=== PATIENT | female | born 1980 | race African-American/Black ===

== ENCOUNTER 2021-01-19 06:37 | Day surgery (SDC) | payer SELFPAY ==
[2021-01-18 11:55] LABS: Absolute Lymphocytes (CBC) 1.8 K/uL (0.7-4.9); Basophils % 0.5 % (0-1.3); Lymphocytes % 26.2 % (15.3-44.8); MPV 8.2 fL (7.6-11.3); RBC Red Blood Cell Count 3.97 M/uL (3.86-4.86)
--- NOTE | 2021-01-18 12:03 | RAD REPORT ---
EXAM DESCRIPTION: Apolinar Perry (2 Views)01/18/2021 11:53 am CLINICAL HISTORY: preop COMPARISON: None FINDINGS: The lungs appear clear of acute infiltrate. The heart is normal size IMPRESSION: No acute abnormalities displayed
[2021-01-18 12:10] LABS: BUN Blood Urea Nitrogen 19 mg/dL (7-18); Bicarbonate 28 mmol/L (21-32); Glucose Level 95 mg/dL (74-106); Sodium Level 141 mmol/L (136-145)
[2021-01-19] MEDS ORDERED: CEFAZOLIN/SWI 1gm 1 GM/10 ML SYR ONE (07:17)
[2021-01-19] MEDS ORDERED: Ringers Lactate 1,000 ML IV ONE ×2 (07:17→12:40)
--- NOTE | 2021-01-19 09:23 | RAD REPORT ---
EXAM DESCRIPTION: NM - Lymphoscintigraphy - 01/19/2021 9:17 am CLINICAL HISTORY: BREAST CA Preoperative lymphoscintigraphy right breast. COMPARISON: Chest Pa And Lat (2 Views) dated 01/18/2021 FINDINGS: Four separate injections of 0.1 millicuries technetium sulfur colloid each was placed abou t the right nipple. Immediate scintigraph shows good localization of radiopharmaceutical.
[2021-01-19] MEDS ORDERED: METHYLENE BLUE 0.5% 10 ML AMP ONE (10:01)
[2021-01-19] MEDS ORDERED: MIDAZOLAM HCL 2 MG/2 ML INJ ONE (10:07)
[2021-01-19] MEDS ORDERED: propofoL 200 MG/20 ML VIAL IV ONE (10:09)
[2021-01-19] MEDS ORDERED: dexAMETHasone 10 MG/ML VIAL ONE (10:10)
[2021-01-19] MEDS ORDERED: FENTANYL CITR 250 MCG/5 ML ONE (10:10)
[2021-01-19] MEDS ORDERED: LIDOCAINE 2% MPF 5 ML VIAL ONE (10:10)
[2021-01-19] MEDS ORDERED: ROCURONIUM 50 MG/5 ML VIAL IV ONE (10:10)
[2021-01-19] MEDS ORDERED: ONDANSETRON 4 MG/2 ML VIAL ONE (10:11)
--- NOTE | 2021-01-19 11:59 | EKG ---
Test Date: 2021-01-18 Test Time: 10:33:54 [employer]duroy Cutting Supervisor: JOLLY MEASUREMENT RESULTS: Intervals: Rate: 59 CA: 156 QRSD: 84 QT: 428 QTc: 423 [place]: P: 11 CA: 156 QRS: 55 T: 28 INTERPRETIVE STATEMENTS: Sinus bradycardia with sinus arrhythmia Otherwise normal ECG Compared to ECG 01/02/2005 13:21:00 Sinus rhythm no longer present Electronically Signed On 01-19-21 11:54:10 CDT by Antwon Lawson
[2021-01-19] MEDS ORDERED: FENTANYL CITR 100 MCG/2 ML ONE (13:17)
[2021-01-19] MEDS ORDERED: KETOROLAC 30 MG/ML INJ ONE (13:41)
[2021-01-19] MEDS ORDERED: Mastisol Adhesive Liq ONE (13:59)
--- NOTE | 2021-01-19 14:04 | P.BOP ---
Preoperative diagnosis: right breast cancer Postoperative diagnosis: same Primary procedure: 1. Right mastectomy Secondary procedure: 2. [place] axillary Lymphnode biopsy Other procedure(s): 3. Left mastectomy Machine Lay Out Worker: Lucia Zarate Estimated blood loss: <100cc Specimen: bilateral breast and right semtinel LN Findings: LN free of tumor per pathologyst Anesthesia: General Complications: None Drain(s): ALYSON drain (x3) Transferred to: Recovery Room Condition: Good
[2021-01-19] MEDS: HYDROMORPHONE HCL 1 MG/ML INJ ONE ×4 (14:40→15:23)
[2021-01-19] MEDS ORDERED: MORPHINE 4 MG/ML SYR IV PRN (14:59)
[2021-01-19] MEDS ORDERED: HYDROCODONE/APAP 7.5/325 MG TAB PO PRN (15:00)
[2021-01-19 16:28] VITALS: BMI 30.2
[2021-01-19] MEDS: NA CHLORIDE 0.9% 1,000 ML IV SCH (17:02)
[2021-01-19] MEDS: CIPROFLOXACIN 400mg IV 400 MG/200 ML BAG IV SCH (20:20)
[2021-01-20] MEDS: NA CHLORIDE 0.9% 1,000 ML IV SCH ×2 (02:35→08:33)
[2021-01-20] MEDS: CIPROFLOXACIN 400mg IV 400 MG/200 ML BAG IV SCH (08:32)
[2021-01-20 12:01] VITALS: O2SAT 98
[2021-01-20 13:19] VITALS: BP 139/63; TEMP 98.7
--- NOTE | 2021-01-20 19:47 | DS ---
Date of Discharge: 01/20/2021 Diagnosis: Breast cancer, status post bilateral mastectomy and sentinel lymph node on the right side . Hospital Course: The patient is doing well. No complaint. The patient was decided to stay overnigh t since she was trying to get control of her pain with IV medication. This morning, she feels better . She is able to control the pain with p.o. medication. She is tolerating diet. Surgical site is i ntact, ALYSON drain serosanguineous. Extremity, no calf tenderness. No shortness of breath. Plan: The patient will be discharged home. Leave dressing intact until she see us in the next few d ays. Medications were called to her pharmacy. Ambulation. HM/MODL Voice ID: [id number] Report ID: [id number]
--- NOTE | 2021-01-24 21:40 | OP ---
Date of Procedure: 01/20/2021 Surgeon: Alli Phillips MD Records Manager: Lucia Dennis. Preoperative Diagnosis: Right breast cancer. Postoperative Diagnosis: Right breast cancer. Procedures: 1.Right mastectomy. 2.[place] axillary lymph node biopsy. 3.Left mastectomy. Estimated Blood Loss: Less than 100 cc. Specimen: Bilateral breasts and right sentinel lymph node. Findings: Lymph node free of tumor per pathologist. Please refer to the sentinel lymph node documen tation for a gamma probe recordings. Anesthesia: General plus local. Drains: ALYSON #10, two on the right side, one on the left side. Indications: This is a case of a young female who comes to us with breast cancer. It was discussed with her, with her friends, which are in the healthcare system and also their oncologist the pros and cons of different surgical intervention. It was selected as the right mastectomy with sentinel lymp h node biopsy possible axillary dissection, and she also wants the left breast removed. The pros and cons were discussed at length with the patient, and we discussed the case also with Dr. Tomeka nails who is her oncologist. The benefits, alternatives, and risks were discussed with the patient, whi ch include, but not limited to infection, bleeding, damage to adjacent structures, anesthesia complic ation, chronic lymphedema, flap failure, recurrence, VT and even . She also understands this ma y not relieve her symptoms. She might need more than one surgical intervention. She signed a consen t. Once again, per her wishes during the same surgery, she will also have opposite breast removed, a lthough no lymph nodes have to be sampled there. She understood. This morning, she went to the radi ology suite where she had localization of the sentinel lymph node, and the patient was then transferr ed directly into the OR with the proper amount of time and then send her back to the OR. Procedure In Detail: The patient was brought to the operating room, placed in supine position. Anes thesia was done without complication. Bilateral breasts were prepped and draped in usual sterile fas hion. I have to mention that each breast was done individually with different instruments and differ ent setup to avoid cross contamination. We proceeded to do the axillary lymph node first. Using the gamma probe, we were able to identify the sentinel lymph node and make an incision. After time-out was called, I made an incision in the right axillary line going to the axillary fat pad, identified t he sentinel lymph node. We previously injected some methylene blue and the lymph node was not only h ot but also blue. We sent the specimen to the pathologist who confirmed the lymph node free of tumor . Please refer to the gamma probe data and numbers on the spread sheet for details about the numbers In Vivo, Ex Vivo, 10 minutes Ex Vivo. After we had that area cleaned, we proceeded then to approxim ate the skin. After that, we proceeded to then go into the right breast area. We delineated the upp er and lower flap including and my specimen the nipple areola complex. We made an incision. Incisio n was created to elevated the flaps superior to the clavicle, medial to the sternum and inferior to t he inframammary fold and laterally to the latissimus dorsi area. The breast was removed with the fas irene off the pectoralis muscle in 1 unit and marked for an orientation. After that, we proceeded to o btain hemostasis. The flap looks intact. Good capillary refill. We proceeded then to put 2 ALYSON drai ns in that area, 1 in the axillary region, another 1 in the chest region. Secured in place with 3-0 nylon each one and connected to bulb suction. The breast was secured in place and closed with the he lp of 3-0 chromic in multiple locations and 4-0 PDS. Steri-Strips was placed over the area. To do t he opposite breast, I just have to mention that at that moment, we made sure nerves were p rotected at all times. Once we finished that case and the team working on the opposite side, the lef t breast, we had new instruments and new setup, new scrubs and completely isolated the opposite side. That included also Bovie cauterizer and rest of the instruments. We made a curvilinear incision in cluding nipple areolar complex in our specimen and then we elevated the flaps superior to the clavicl e, medial to the sternum, inferior to inframammary fold, and laterally to latissimus dorsi once again protecting the thoracic outlets, long thoracic nerve at all times. The breast was removed with a co rresponding fascia from the pectoralis muscle. Area was irrigated. Hemostasis was obtained. Then, after that, flap looked intact. We proceeded once again to place a ALYSON #10 x1, secured in place with 3-0 nylon, and then basically tried to close incision with the help of 3-0 chromic and 4-[address] evie-Strips on top. Sponge counts and instrument counts were correct on both sides. At the end of case, the flaps looked to have good capillary refill and extremities looked intact. The patient wa s sent to Recovery in stable condition. Due to pain in that area, the patient will be kept overnight and most likely sent home tomorrow morning. Sponge counts and instrument counts correct. SERGIO/SAUMYA Voice ID: [id number] Report ID: [id number]
== END 2021-01-20 14:10 | disposition home or self-care (01) ==
LOC: OR 06:37 → 2ND 15:50 → OR 01-20 14:10
PROVIDERS: ATTEND Surgery
PROC: 07B50ZX Excision of Right Axillary Lymphatic, Open Approach, Diagnostic (ICD-10-PCS; 2021-01-19)
PROC: 0HBV0ZZ Excision of Bilateral Breast, Open Approach (ICD-10-PCS; principal; 2021-01-19 10:45)
DX: C50.911 Malignant neoplasm of unspecified site of right female breast (principal); Z20.822 Contact with and (suspected) exposure to COVID-19
CPT/HCPCS: 93005; 85025; 80048; 36415; 81025; 88307 ×2; 88333; 88334; 71046; 97116; 97163; 97530; 94010; 78195; 19303; 38500; 38900; U0003; J2704; J2250; J3010 ×2; J1100; J1170 ×2; J0690; J7120 ×2; J7030 ×2; J2405; J0744 ×2; A9541